=== PATIENT | female | born 1980 | race Caucasian/White ===

== ENCOUNTER → 2023-07-21 09:35 | Outpatient (REF) | payer OTHER, SELFPAY ==
[2023-07-21 12:17] LABS: % Basophils 0.5 % (0-2); % Eosinophils 1.1 % (0-6); % Immature Granulocytes 0.3 % (0-0.5); % Lymphocytes 28.6 % (20.5-51.1); % Monocytes 7.8 % (1.7-9.3); % Neutrophils 61.7 % (42.2-75.2); Absolute Eosinophils 0.1 10^3/uL (0-0.7); Absolute Lymphocytes 1.9 10^3/uL (1.2-3.4); Absolute Monocytes 0.5 10^3/uL (0.1-0.6); Hematocrit 44.4 % (37.0-47.0); Hemoglobin 14.6 g/dL (12.0-16.0); Mean Corp Hgb Conc. 32.9 g/dL (33.0-37.0); Mean Corpuscular Hgb 30.6 pg (27.0-31.0); Mean Corpuscular Volume 93.1 fL (81.0-99.0); Mean Platelet Volume 12.5 fL (7.4-10.4); Nucleated Red Blood Cells % 0 %; Platelet Count 185 10^3/uL (130-400); Red Blood Cell Count 4.77 10^6/uL (4.20-5.40); Red Cell Dist. Width 12.9 % (11.5-14.5); White Blood Cell Count 6.5 10^3/uL (4.8-10.8)
[2023-07-21 12:56] LABS: ALT (SGPT) 21 U/L (0-35); AST (SGOT) 26 U/L (14-36); Albumin 4.9 g/dl (3.5-5.0); Alkaline Phosphatase 76 U/L (38-126); Amylase 67 U/L (30-110); Blood Urea Nitrogen 8 mg/dl (7-17); Calcium 9.8 mg/dl (8.4-10.2); Carbon Dioxide 27 mmol/L (22-30); Chloride 104 mmol/L (98-107); Glucose 91 mg/dl (70-99); Lipase 78 U/L (23-300); Sodium 137 mmol/L (135-145); Total Bilirubin 0.6 mg/dl (0.2-1.3); eGFR > 60.00
== END ==
LOC: HWRAD 09:35
PROVIDERS: ATTENDING PHYSICIAN Nurse Practitioner Adult Health
DX: R10.9 Unspecified abdominal pain (principal); R19.7 Diarrhea, unspecified; Z85.41 Personal history of malignant neoplasm of cervix uteri; R14.0 Abdominal distension (gaseous)
CPT/HCPCS: 36415; 74178; 80053; 82150; 83690; 85025; Q9967

== ENCOUNTER → 2023-09-01 06:41 | Day surgery (SDC) | payer OTHER, SELFPAY | LOC: GI 06:41 | PROVIDERS: ATTENDING PHYSICIAN Internal Medicine | DX: Z12.11 Encounter for screening for malignant neoplasm of colon (principal); D12.3 Benign neoplasm of transverse colon; D12.5 Benign neoplasm of sigmoid colon; D12.8 Benign neoplasm of rectum; K62.1 Rectal polyp; F17.210 Nicotine dependence, cigarettes, uncomplicated; Z86.010 Personal history of colon polyps | CPT/HCPCS: 45385; 45380; 88305 ==

== ENCOUNTER → 2023-09-24 12:16 | Outpatient (REF) | payer OTHER, SELFPAY | LOC: HWRAD 12:16 | PROVIDERS: ATTENDING PHYSICIAN Nurse Practitioner Adult Health | DX: M54.18 Radiculopathy, sacral and sacrococcygeal region (principal); M51.26 Other intervertebral disc displacement, lumbar region | CPT/HCPCS: 73523 ==

== ENCOUNTER → 2023-11-10 15:31 | Outpatient (REF) | payer OTHER, SELFPAY | LOC: PAVMRI 15:31 | PROVIDERS: ATTENDING PHYSICIAN Physical Medicine & Rehabilitation; FAMILY PHYSICIAN Nurse Practitioner Adult Health | DX: F07.81 Postconcussional syndrome (principal) | CPT/HCPCS: 70551 ==

== ENCOUNTER 2023-11-17 09:33 | Emergency (ER) | payer OTHER, SELFPAY ==
[2023-11-17 09:34] VITALS: BP 120/86
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
[2023-11-17] MEDS: TORADOL 15 MG IV (10:47)
[2023-11-17] MEDS: NSS 500 IV (10:47)
[2023-11-17] MEDS: ZOFRAN 4 MG IV (10:48)
[2023-11-17] MEDS: DILAUDID 0.5 MG IV (10:48)
[2023-11-17 10:51] LABS: % Basophils 0.6 % (0-2); % Eosinophils 1.3 % (0-6); % Immature Granulocytes 0.2 % (0-0.5); % Neutrophils 57.9 % (42.2-75.2); Absolute Eosinophils 0.1 10^3/uL (0-0.7); Absolute Lymphocytes 1.6 10^3/uL (1.2-3.4); Absolute Monocytes 0.5 10^3/uL (0.1-0.6); Hemoglobin 13.8 g/dL (12.0-16.0); Mean Corp Hgb Conc. 35.4 g/dL (33.0-37.0); Mean Corpuscular Hgb 32.3 pg (27.0-31.0); Mean Corpuscular Volume 91.3 fL (81.0-99.0); Mean Platelet Volume 12.9 fL (7.4-10.4); Nucleated Red Blood Cells % 0 %; Platelet Count 138 10^3/uL (130-400); Red Blood Cell Count 4.27 10^6/uL (4.20-5.40); Red Cell Dist. Width 12.5 % (11.5-14.5); White Blood Cell Count 5.3 10^3/uL (4.8-10.8)
[2023-11-17 11:07] LABS: Urine Albumin Negative (Neg - Trace); Urine Bilirubin Negative (Negative); Urine Character Clear (Clear); Urine Color Yellow; Urine Glucose Negative (Negative); Urine Ketone Negative (Negative); Urine Leukocyte Negative (Negative); Urine Nitrite Negative (Negative); Urine Occult Blood Negative (Negative); Urine Urobilinogen Negative (Neg - 1+)
[2023-11-17 11:12] LABS: C-Reactive Protein < 5.00 mg/L (0.0-10.00)
[2023-11-17 11:15] LABS: Blood Urea Nitrogen 13 mg/dl (7-17); Calcium 9.3 mg/dl (8.4-10.2); Carbon Dioxide 25 mmol/L (22-30); Chloride 110 mmol/L (98-107); Glucose 92 mg/dl (70-99); Magnesium 1.8 mg/dl (1.6-2.3); Potassium 4.1 mmol/L (3.5-5.1); Sodium 140 mmol/L (135-145); eGFR > 60.00
[2023-11-17 12:00] LABS: Erythrocyte Sed Rate 10 mm/hour (0-20)
[2023-11-17 12:43] VITALS: BP 102/58
== END 2023-11-17 12:45 | disposition home or self-care (01) ==
LOC: EMR 09:33
PROVIDERS: EMERGENCY PHYSICIAN Emergency Medicine; FAMILY PHYSICIAN Nurse Practitioner Adult Health
DX: R51.9 Headache, unspecified (principal); R03.0 Elevated blood-pressure reading, without diagnosis of hypertension; F17.200 Nicotine dependence, unspecified, uncomplicated
CPT/HCPCS: 99284; 96374; 96375 ×2; 80048; 81003; 83735; 85025; 85652; 86140

== ENCOUNTER → 2024-01-14 12:16 | Outpatient (REF) | payer OTHER, SELFPAY | LOC: PAVMRI 12:16 | PROVIDERS: ATTENDING PHYSICIAN Nurse Practitioner Adult Health | DX: G93.5 Compression of brain (principal); R41.3 Other amnesia; H51.11 Convergence insufficiency; R47.01 Aphasia; G95.0 Syringomyelia and syringobulbia; F07.81 Postconcussional syndrome; G95.9 Disease of spinal cord, unspecified | CPT/HCPCS: 70553; 72156; A9575 ==

== ENCOUNTER → 2024-01-17 11:08 | Outpatient (REF) | payer OTHER, SELFPAY | LOC: PAVMRI 11:08 | PROVIDERS: ATTENDING PHYSICIAN Nurse Practitioner Adult Health | DX: G93.5 Compression of brain (principal); R41.3 Other amnesia; H51.11 Convergence insufficiency; R47.01 Aphasia; G95.0 Syringomyelia and syringobulbia; F07.81 Postconcussional syndrome; G95.9 Disease of spinal cord, unspecified | CPT/HCPCS: 72148; 72157; A9575 ==

== ENCOUNTER → 2024-05-03 13:59 | Outpatient (REF) | payer OTHER, SELFPAY | LOC: HWRAD 13:59 | PROVIDERS: ATTENDING PHYSICIAN Student in an Organized Health Care Education/Training Program; FAMILY PHYSICIAN Nurse Practitioner Adult Health; REFERRING PHYSICIAN Nurse Practitioner Adult Health | DX: M25.551 Pain in right hip (principal); S34.5XXA Injury of lumbar, sacral and pelvic sympathetic nerves, initial encounter; M25.571 Pain in right ankle and joints of right foot | CPT/HCPCS: 72100; 73502; 73610 ==

== ENCOUNTER 2024-07-20 21:42 | Observation (INO) | payer OTHER, SELFPAY ==
[2024-07-20 15:20] VITALS: BP 110/73
[2024-07-20 15:39] VITALS: BMI 24.6
--- NOTE | 2024-07-20 15:56 | ED.GENMED ---
History of Present Illness
General
Chief Complaint: Back Pain
Source: patient
Exam Limitations: none
Time Seen by Provider: 07/20/24 15:36
Nursing documentation reviewed up to this point in time: agreed with
History of Present Illness
History of Present Illness:
43-year-old female presents Emergency Department due to pain in her low back. She leaned over to the side and felt a pop. She states she has a history of a herniated disc. She states it is mild.
Past History
Past History
ED Past Medical History: Other (IBS, GERD, colon polyps, migraines, anxiety)
ED Past Surgical History: Other (Breast augmentation)
Social History
Tobacco: Smoker
Alcohol: None
Drug: None
Personal:
Living: with family
Employment: Employed
Family History
Family History: Other (Diabetes, autoimmune deficiency, colon polyps)
Review of Systems
Review of Systems
Allergies reviewed?: Yes
All Other Systems: Not applicable
Constitutional: Reports no symptoms
EENT: Reports no symptoms
Respiratory: Reports no symptoms
Cardiac: Reports no symptoms
ABD/GI: Reports no symptoms
: Reports no symptoms
Musculoskeletal: Reports back pain
Skin: Reports no symptoms
Neurological: Reports no symptoms
Endocrine: Reports no symptoms
Hematologic/Lymphatic: Reports no symptoms
Psychiatric: Reports no symptoms
Phy Exam
Physical Exam
Physical Exam:
Physical Exam
General: Appears uncomfortable
Neck: supple. no meningeal signs. normal posterior pharynx
Heart: s1/s2 regular rate and rhythm, no murmur. equal radial
pulses.
HEENT: Pupils equal round reactive to light, EOMI
Lungs: no acute respiratory distress. clear bilaterally
Abdomen: normal bowel sounds. not tender. no CVAT
back: no spinal tenderness or stepoff
Neuro: alert and oriented. no focal neurological deficits cranial nerves II through XII intact
Skin: no rash
Psychiatric: well kept. interactive and cooperative
Extremities: no edema. no calf tenderness. negative homans. good distal pulses
Course
Orders/Labs/Results
Orders:
Orders
07/20/24 Dinner
Regular
At Your Request: Full Participation
07/20/24 15:52
Cyclobenzaprine HCl [Flexeril] 10 mg PO NOW STA
Ketorolac [Toradol] 15 mg IV NOW STA
Lumbar Spine Complete, 4 View [CR Lumbar Spine Comp Min 4 Vw*] Urgent
Comment:
Reason For Exam: low back pain, right side
07/20/24 17:14
diazePAM [Valium Injection] 5 mg IV NOW STA
07/20/24 18:37
HYDROmorphone [Dilaudid] 1 mg IV NOW STA
07/20/24 20:50
CBC/With Diff [Complete Blood Count/With Diff] Urgent
CMP [Comprehensive Metabolic Panel] Urgent
07/20/24 21:18
Admit/Transfer Patient As Directed
Co-Sign Provider:
Level of Care: Observation services
Assign to:: Medical/Surgical
Physician / Group: hospitalist
Diagnosis: intractable back pain
Code Status As Directed
Resuscitation Status: Full Code
PRN Pain Medication Management As Directed
May give lesser potent ordered pain med per pt: Yes
preference::
Protocol:: Medication orders for pain may be administered in a
manner that supports deferring to patient preference
when the pt is:
- Requesting an ordered lesser potent pain medication.
Least to most potent pain medications are defined
as: acetaminophen < NSAID < tramadol < opioids
(morphine, oxycodone, hydromorphone).
- Requesting a lesser dose of the same medication IF
ORDERED.
- Requesting a less intrusive route of administration
if both routes are prescribed by the provider (PO <
IV).
07/20/24 22:00
Flush (0.9% Sodium Chloride) [Flush (Nss)] See Dose Instructions IV PER PROTOCOL
07/20/24 22:08
Albuterol [ProAIR HFA INHALER] 2 puff INH R Q6HPRN PRN
Bisacodyl [Dulcolax] 10 mg RECTAL [id number] PRN
Docusate W/Senna [Senokot-S] 1 tablet PO BIDPRN PRN
HYDROmorphone [Dilaudid] 0.25 mg IV Q4HPRN PRN
Ibuprofen [Motrin] 400 mg PO Q6HPRN PRN
Ketorolac [Toradol] 10 mg IV Q6HPRN PRN
Melatonin 3 mg PO HS
Ondansetron Injectable [Zofran] 4 mg IV Q6HPRN PRN
Polyethylene Glycol Powder [Miralax] 17 grams PO DAILYPRN PRN
07/20/24 22:08
MR Lumbar Without Contrast Routine
Comment:
Reason For Exam: back pain exacerbation, eval for disc herniation
Recent pill cam endoscopy?: No
Activity As Directed
Activity Level: With Assistance
Pneumatic Compression Sleeves As Directed
Type: Knee high
Vital Signs As Directed
Frequency: Per unit guidelines
DX Deep Vein Thrombosis Video Routine
07/20/24 22:15
Cyclobenzaprine HCl [Flexeril] 5 mg PO TIDPRN PRN
07/21/24 00:00
Acetaminophen [Tylenol] 650 mg PO Q4HWA
07/21/24 08:00
Prednisone [Deltasone] 40 mg PO DAILY
Abnormal Lab Results
07/20/24
20:50
RBC 4.06 L 10^6/uL
(4.20-5.40)
Hct 36.8 L %
(37.0-47.0)
MPV 12.8 H fL
(7.4-10.4)
Chloride 110 H mmol/L
(98-107)
Total Protein 6.1 L g/dl
(6.3-8.2)
07/20/24 20:50
07/20/24 20:50
Vital Signs
Initial and Last Documented VS:
Initial Vital Signs
Temp Pulse Resp BP Pulse Ox
98.3 F 101 17 110/73 98
07/20/24 15:20 07/20/24 15:20 07/20/24 15:20 07/20/24 15:20 07/20/24 15:20
Last Documented Vital Signs
Temp Pulse Resp BP Pulse Ox
98.2 F 76 17 99/63 97
07/20/24 22:16 07/20/24 22:16 07/20/24 22:16 07/20/24 22:16 07/20/24 22:16
MDM/Problems Addressed
Differential Diagnosis Includes:
Cauda equina, herniated disc
MDM/Problems Addressed:
43-year-old female with intractable back pain. No signs cauda equina. Unable to ambulate. Admit to hospitalist for further evaluation.
*Radiology
Radiology exam reviewed: radiology read reviewed (Lumbar x-ray no acute findings)
*Pulse Oximetry
Patient hypoxic: no
*Critical Care Note
Total Time (30-74mins, 75-104mins- exclusive of procedures): Not Applicable
Patient Management
Social determinants of health affecting care: Living situation and Strong social support
Discussion with other providers: Hospitalist
Escalation/DeEscalation of care consider admission/obs:
Admit indicated
ED Attending Note
-
Portions of this chart may have been created with voice recognition software.� Occasional wrong word or��sound alike� substitutions may have occurred due to the inherent limitations of voice recognition software.
Discharge Plan
Departure
Patient Disposition: Admit
Date of Disposition: 07/20/24
Time of Disposition: 20:22
Admit to: Med/Surg
Presentation/result/management discussed w/ accepting MD/DO: Hospitalist
Patient with high blood pressure during this ER visit?: No
Condition: Fair
Discharge Problem:
Intractable low back pain
Interventions
Interventions:
*Risk Screen - Suicide Last Done: 07/20/24 22:42
*General Assessment Last Done: 07/20/24 15:22
*Neglect/Abuse Screening Last Done: 07/20/24 15:22
*ED- Fall Risk Assessment Last Done: 07/20/24 15:27
*ED COVID-19 Vaccine History Last Done: 07/20/24 22:42
*Nursing Disposition Last Done: 07/20/24 22:02
ED-Musculoskeletal Assessment Last Done: 07/20/24 15:37
Discharge Date and Time
Discharge Date/Time: 07/20/24 22:21
[2024-07-20] MEDS: FLEXERIL 10 MG PO (16:17)
[2024-07-20] MEDS: TORADOL 15 MG IV (16:22)
[2024-07-20] MEDS: VALIUM INJECTION 5 MG IV (17:23)
[2024-07-20] MEDS: DILAUDID 1 MG IV (18:47)
[2024-07-20 19:24] VITALS: BP 102/61
[2024-07-20 21:07] LABS: % Basophils 0.5 % (0-2); % Eosinophils 1.8 % (0-6); % Immature Granulocytes 0.2 % (0-0.5); % Lymphocytes 46.7 % (20.5-51.1); % Monocytes 8.5 % (1.7-9.3); % Neutrophils 42.3 % (42.2-75.2); Absolute Eosinophils 0.1 10^3/uL (0-0.7); Absolute Lymphocytes 2.8 10^3/uL (1.2-3.4); Absolute Monocytes 0.5 10^3/uL (0.1-0.6); Absolute Neutrophils 2.5 10^3/uL (1.4-6.5); Hematocrit 36.8 % (37.0-47.0); Hemoglobin 12.4 g/dL (12.0-16.0); Mean Corp Hgb Conc. 33.7 g/dL (33.0-37.0); Mean Corpuscular Hgb 30.5 pg (27.0-31.0); Mean Corpuscular Volume 90.6 fL (81.0-99.0); Mean Platelet Volume 12.8 fL (7.4-10.4); Nucleated Red Blood Cells % 0 %; Platelet Count 150 10^3/uL (130-400); Red Blood Cell Count 4.06 10^6/uL (4.20-5.40); Red Cell Dist. Width 12.2 % (11.5-14.5)
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
[2024-07-20 21:22] LABS: ALT (SGPT) 28 U/L (0-35); AST (SGOT) 27 U/L (14-36); Albumin 3.9 g/dl (3.5-5.0); Alkaline Phosphatase 63 U/L (38-126); Blood Urea Nitrogen 17 mg/dl (7-17); Calcium 8.8 mg/dl (8.4-10.2); Carbon Dioxide 26 mmol/L (22-30); Chloride 110 mmol/L (98-107); Estimated Creatinine Clearance 74 ml/min; Glucose 98 mg/dl (70-99); Potassium 4.3 mmol/L (3.5-5.1); Sodium 142 mmol/L (135-145); Total Bilirubin 0.4 mg/dl (0.2-1.3); Total Protein 6.1 g/dl (6.3-8.2); eGFR > 60.00
--- NOTE | 2024-07-20 22:10 | PTCARENOTE ---
Pt transported from ED to 3W via stretcher. Pt was able to ambulate from stretcher to bed independently. Vitals were obtained and stable, pt AAOX3, oriented to room and call giraldo within reach.
[2024-07-20 22:16] VITALS: BP 99/63; BMI 24.9
[2024-07-20] MEDS: DILAUDID 0.25 MG IV (22:28)
[2024-07-20] MEDS: MELATONIN 3 MG PO (22:29)
[2024-07-20 23:54] VITALS: BP 123/79
[2024-07-21] MEDS: TYLENOL PO ×2 (01:22→05:21)
[2024-07-21 07:28] VITALS: BP 107/62
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
[2024-07-21] MEDS: DELTASONE 40 MG PO (08:44)
[2024-07-21] MEDS: TYLENOL 650 MG PO ×2 (08:46→13:31)
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
[2024-07-21 14:49] VITALS: BP 102/59; PULSE 102; O2SAT 94
[2024-07-21 14:56] VITALS: BP 102/59
--- NOTE | 2024-07-24 08:51 | CM ---
Addendum Pt left prior to CM Admission .
== END 2024-07-21 15:40 | disposition home or self-care (01) ==
LOC: 3 WEST ACU 21:42
PROVIDERS: ADMITTING PHYSICIAN Internal Medicine; ATTENDING PHYSICIAN Family Medicine; EMERGENCY PHYSICIAN Emergency Medicine; FAMILY PHYSICIAN Nurse Practitioner Adult Health
DX: M51.27 Other intervertebral disc displacement, lumbosacral region (principal); G89.29 Other chronic pain; K21.9 Gastro-esophageal reflux disease without esophagitis; F41.9 Anxiety disorder, unspecified; K58.9 Irritable bowel syndrome, unspecified; F17.200 Nicotine dependence, unspecified, uncomplicated; M79.604 Pain in right leg; R60.9 Edema, unspecified; V89.2XXS Person injured in unspecified motor-vehicle accident, traffic, sequela; Z83.719 Family history of colon polyps, unspecified; Z83.3 Family history of diabetes mellitus; Z86.0100 Personal history of colon polyps, unspecified; Z88.5 Allergy status to narcotic agent
CPT/HCPCS: 72110; 72148; 80053; 85025; 96374; 96375; 97116; 97162; 99285; 99406; G0378

== ENCOUNTER → 2024-08-16 10:36 | Outpatient (REF) | payer OTHER, SELFPAY | LOC: MRI 3T 10:36 | PROVIDERS: ATTENDING PHYSICIAN Student in an Organized Health Care Education/Training Program; FAMILY PHYSICIAN Nurse Practitioner Adult Health | DX: G89.29 Other chronic pain (principal); M25.571 Pain in right ankle and joints of right foot; M79.7 Fibromyalgia | CPT/HCPCS: 73721 ==